=== PATIENT | male | born 1995 | race Caucasian/White ===

== ENCOUNTER 2017-11-06 18:36 | Emergency (ER) | payer OTHER ==
[2017-11-06] MEDS ORDERED: IBUPROFEN 600 MG TABLET PO ONE (18:53)
--- NOTE | 2017-11-06 19:54 | ER Document Report ---
ED Respiratory Problem - General Chief Complaint: Cold Symptoms Stated Complaint: COLD SYMPTOMS Time Seen by Provider: 11/06/17 18:53 Mode of Arrival: Ambulatory Information source: Patient TRAVEL OUTSIDE OF THE [place] IN LAST 30 DAYS: No - HPI Patient complains to provider of: Other - fever, st, cough Notes: Patient is here with complaints of sore throat, cough, intermittent headaches and not feeling well for the last week. He states that he has felt like he has had a fever for about a week now as well. He denies any chest pain or difficulty breathing. No abdominal pain. No nausea, vomiting, diarrhea. No blurred or loss vision. No neck stiffness. He denies any difficulty breathing or swallowing. He denies any chronic medical conditions. He denies any drug use. Nothing seems to make his symptoms better or worse. He denies any other complaints at this time. - Related Data Allergies/Adverse Reactions: No Known Allergies Allergy (Unverified 01/22/16 18:17) Home Medications: no home meds Past Medical History - Social History Smoking Status: Never Smoker Chew tobacco use (# tins/day): No Frequency of alcohol use: Social Drug Abuse: None Family History: Reviewed & Not Pertinent Patient has suicidal ideation: No Patient has homicidal ideation: No Pulmonary Medical History: Reports: Hx Bronchitis, Hx Pneumonia - walking Renal/ Medical History: Denies: Hx Peritoneal Dialysis Review of Systems - Review of Systems -: Yes All other systems reviewed and negative Physical Exam - Vital signs Vitals: Temp Pulse Resp BP Pulse Ox 100.8 F H 99 16 140/75 H 98 11/06/17 18:48 11/06/17 18:48 11/06/17 18:48 11/06/17 18:48 11/06/17 18:48 - Notes Notes: GENERAL: alert, cooperative, nontoxic, no distress. HEAD: normocephalic, atraumatic EYES: conjunctiva pink without discharge, no external redness or swelling. Pupils equal round react light bilaterally. Extra muscles are intact. EARS: no external swelling, no external redness, no mastoid redness, swelling, tenderness. Ear canals are clear without swelling or drainage. TMs pearly greene , no redness, no bulging, normal landmarks, no perforation. NOSE: atraumatic, no external swelling. clear rhinorrhea noted. MOUTH/THROAT: mucous membranes moist and pink, posterior pharynx without erythema, swelling, exudate. No trismus or drooling. NECK: soft, supple, full range of motion, no meningismus. CHEST: no distress, lungs clear and equal throughout. No wheezing, rales, rhonchi. CARDIAC: regular rate and rhythm, no murmur, normal capillary refill, normal pulses. No peripheral edema noted. BACK: full range of motion, no CVA tenderness. EXTREMITIES: full range of motion of all extremities. No redness, no swelling. NEURO: alert and oriented A&O3, no focal deficits, full range of motion of all extremities. Cranial nerves II through XII are grossly intact. PYSCH: appropriate mood, affect. Patient is cooperative. SKIN: pink, warm, dry, no rash. Course - Re-evaluation Re-evalutation: 11/06/17 20:37 Patient is nontoxic appearing with stable vitals. Is here with complaints of cold symptoms for about a week with fever. Did have a low-grade fever here. No tachycardia or hypoxia. No signs of sepsis. Is a completely benign exam. There was a blood pressure documented inadvertently on his chart. Patient's rapid strep was negative. Chest x-ray shows possible right upper lobe pneumonia. Patient will be discharged home with a prescription for doxycycline. Follow-up with his doctor in the next 1-2 weeks for reevaluation. He should follow-up sooner for worsening symptoms, high fever, persistent vomiting, difficulty breathing, or for any further concerns. The patient is noted to have elevated blood pressure during today's emergency department visit. The patient was informed of this finding. The patient was instructed that this may be related to pre-hypertension and requires further evaluation with a primary care provider. The patient has no hypertensive symptoms at this time. The patient's emergency department workup and current diagnosis were explained to the patient and or family. Follow-up instructions were provided. Medications if prescribed were discussed. Instructions for when to return to the emergency department including specific worrisome symptoms were discussed with the patient and/or family. - Vital Signs Vital signs: Temp Pulse Resp BP Pulse Ox 100.8 F H 99 16 140/75 H 98 11/06/17 18:48 11/06/17 18:48 11/06/17 18:48 11/06/17 18:48 11/06/17 18:48 - Diagnostic Test Radiology reviewed: Image reviewed, Reports reviewed - Right upper lobe pneumonia Discharge - Discharge Clinical Impression: Community acquired bacterial pneumonia Condition: Stable Disposition: HOME, SELF-CARE Instructions: Pneumonia ([facility]), Family Physicians / Practices Additional Instructions: Take medications as prescribed. Drink plenty of fluids. Tylenol and Motrin as needed for pain or fevers. Try to stop smoking. Follow-up in 1-2 weeks for recheck. Follow-up sooner for worsening symptoms, high fever, persistent vomiting, difficulty breathing, or for any further concerns. Your blood pressure was elevated during today's visit. Have this rechecked with your doctor. Prescriptions: Doxycycline Hyclate 100 mg PO BID #20 capsule Forms: Elevated Blood Pressure, Smoking Cessation Education Referrals: [facility] [Provider Group] - Follow up as needed
--- NOTE | 2017-11-06 20:25 | RADIOLOGY REPORT (SQ) ---
EXAM DESCRIPTION: CHEST 2 VIEWS COMPLETED DATE/TIME: 11/06/2017 8:12 pm REASON FOR STUDY: fever, cough COMPARISON: 01/22/2016 EXAM PARAMETERS: NUMBER OF VIEWS: two views TECHNIQUE: Digital Frontal and Lateral radiographic views of the chest acquired. RADIATION DOSE: NA LIMITATIONS: none FINDINGS: LUNGS AND PLEURA: There is slight haziness in the right upper lobe. No pleural effusion i s seen. No mass is appreciated. MEDIASTINUM AND HILAR STRUCTURES: No masses or contour abnormalities. HEART AND VASCULAR STRUCTURES: Heart normal size. No evidence for failure. BONES: No acute findings. HARDWARE: None in the chest. OTHER: No other significant finding. IMPRESSION: Cannot exclude a limited right upper lobe pneumonia. TECHNICAL DOCUMENTATION: JOB ID: [id number] [employer]- All Rights Reserved Reading location - IP/workstation name: [email or web address]
[2017-11-06 20:53] VITALS: BP 127/73
== END 2017-11-06 20:53 | disposition home or self-care (01) ==
LOC: ER 18:36
DX: J15.9 Unspecified bacterial pneumonia (principal); R05 Cough; R51 Headache; R03.0 Elevated blood-pressure reading, without diagnosis of hypertension
CPT/HCPCS: 71046; 87070; 87880; 99284